=== PATIENT | male | born 1965 | race Two or more races ===

== ENCOUNTER 2020-11-13 08:39 | Emergency (ER) | payer OTHER ==
[~2020-11-13] VITALS: Ht 172.7 cm; Wt 70.3 kg
== END 2020-11-13 19:20 | disposition home or self-care (01) ==
LOC: ER 08:39
DX: K52.9 Noninfective gastroenteritis and colitis, unspecified (principal); D72.829 Elevated white blood cell count, unspecified; Z03.818 Encounter for observation for suspected exposure to other biological agents ruled out

== ENCOUNTER 2021-12-19 10:11 | Emergency (ER) | payer OTHER ==
[~2021-12-19] VITALS: Ht 172.7 cm; Wt 68.0 kg
== END 2021-12-19 15:46 | disposition home or self-care (01) ==
LOC: ER 10:11
DX: K52.9 Noninfective gastroenteritis and colitis, unspecified (principal); K29.90 Gastroduodenitis, unspecified, without bleeding; R11.10 Vomiting, unspecified

== ENCOUNTER 2022-03-14 09:13 | Emergency (ER) | payer OTHER ==
[~2022-03-14] VITALS: Ht 172.7 cm; Wt 68.0 kg
== END 2022-03-14 15:05 | disposition home or self-care (01) ==
LOC: ER 09:13
DX: K52.89 Other specified noninfective gastroenteritis and colitis (principal)